=== PATIENT | female | born 1945 | race Caucasian/White ===

== ENCOUNTER 2020-11-06 08:20 | Outpatient (CLI) | payer MEDICARE, OTHER, SELFPAY ==
--- NOTE | ~2020-11-06 | US_ITS ---
EXAMINATION: US abdomen complete EXAM DATE: 11/06/2020 08:57 INDICATION: R10.9 - Unspecified abdominal pain. TECHNIQUE: Multiple grayscale and Doppler images of the complete abdomen were obtained (by a technolo gist who performed the scan) and subsequently reviewed. Comparison is made to prior examination from 10/26/18. FINDINGS: The abdominal aorta is normal in caliber. Visualized portion IVC is patent. The pancreatic head a nd body are normal in appearance. The pancreatic tail is not visualized. There is echogenic liver parenchyma, hepatic steatosis. There are no focal liver lesions identified. There is no evidence of intrahepatic biliary duct dilation. Portal venous flow was seen in the he patopedal, normal direction and has normal Doppler waveform. Common bile duct measures 4 mm, which is normal. The gallbladder wall is normal in thickness, with ex pected amount of distention. No sonographic evidence of pericholecystic fluid. There is cholelithia sis. Technologist performing exam reports patient did not demonstrate sonographic Soares's sign. P loraine note that this sign is less reliable in patients who have received pain medication. Right kidney: There is normal contour and echogenicity. It measures 10.2 x 3.9 x 5.2 centimeters. There are no focal renal lesions identified. There is no hydronephrosis. Left kidney: There is normal contour and echogenicity. It measures 10.5 x 4.4 x 4.6 centimeters. T here are no focal renal lesions identified. There is no hydronephrosis. The spleen measures 8.9 centimeters and is morphologically normal. IMPRESSION: 1. Unremarkable complete abdominal ultrasound exam. Reviewed, dictated and finalized at location B. CONSULTANT
== END 2020-11-06 08:21 ==
PROVIDERS: PCP Internal Medicine; Visit Provider Internal Medicine
DX: R10.9 Unspecified abdominal pain (principal)
CPT/HCPCS: 76700

== ENCOUNTER → 2020-11-07 12:51 | Outpatient (CLI) | payer MEDICARE, OTHER, SELFPAY ==
--- NOTE | ~2020-11-07 | MM_ITS ---
EXAMINATION: MM screening jacob BI w [place] HISTORY: Screening mammogram TECHNIQUE: Craniocaudal and mediolateral oblique 3-D tomosynthesis images were obtained and synthetic 2-D images were generated. CAD analysis was submitted and interpreted. COMPARISON: 10/28/2019, 10/26/2018, 10/16/2017 and lateral digital screening mammogram examinations BREAST PARENCHYMAL COMPOSITION: There are scattered areas of fibroglandular density. FINDINGS: There are numerous chronic bilateral low-density circumscribed opacities consistent with ly mph nodes along both axillary tail regions. Occasional bilateral benign calcifications are again noted. There is no evidence of suspicious mass, calcification, or architectural distortion to suggest malign roopa in either breast. There has been no suspicious interval change. IMPRESSION: 1. No mammographic evidence of malignancy. 2. Recommend routine screening mammography in one year. BI-RADS Category 2: Benign finding(s). Reviewed, dictated and finalized at location A. PER
== END ==
PROVIDERS: PCP Internal Medicine; Visit Provider Internal Medicine
DX: Z12.31 Encounter for screening mammogram for malignant neoplasm of breast (principal)
CPT/HCPCS: 77063; 77067

== ENCOUNTER 2021-01-15 13:14 | Outpatient (CLI) | payer MEDICARE, OTHER, SELFPAY | END 2021-01-15 13:15 | disposition home or self-care (01) | LOC: ANHCOVIDVC 13:14 | PROVIDERS: PCP Internal Medicine | DX: Z23 Encounter for immunization (principal) | CPT/HCPCS: 0001A; 91300 ==

== ENCOUNTER → 2021-01-16 00:15 | Outpatient (CLI) | payer MEDICARE, OTHER, SELFPAY ==
[2021-01-16 19:08] LABS: SARS-CoV-2 RNA PCR Negative
== END ==
PROVIDERS: PCP Internal Medicine; Visit Provider Internal Medicine Gastroenterology
DX: Z01.812 Encounter for preprocedural laboratory examination (principal); Z20.822 Contact with and (suspected) exposure to COVID-19
CPT/HCPCS: C9803; U0003; U0005

== ENCOUNTER 2021-01-19 00:57 | Day surgery (SDC) | payer MEDICARE, OTHER, SELFPAY ==
[2021-01-04 10:45] VITALS: BMI 28.4
--- NOTE | 2021-01-18 13:29 | WPDANESEPPF ---
Anes - Initial Pre Proc Eval Procedure: Operation Date: 01/19/21 08:00 Proposed Procedures p Screening Colonoscopy - Price Orosco MD Date/Time: 01/18/21 13:29 Surgeon: Price Orosco MD Pre Op Diagnosis: Neoplasm Screening Patient Data Age: 75 Gender: F Height: 1.65 m Weight: 77.5 kg Allergies Allergy/AdvReac Type Severity Reaction Status Date / Time No Known Allergies Allergy Mild Verified 01/19/21 06:41 Home Medications Medication Instructions Recorded Confirmed Type aspirin 81 mg tablet,delayed 81 mg PO DAILY 01/18/20 01/19/21 History release lisinopril 20 mg tablet 20 mg PO DAILY 01/18/20 01/19/21 History magnesium 250 mg tablet 250 mg PO DAILY 01/18/20 01/19/21 History omeprazole 20 mg capsule,delayed 20 mg PO DAILY #90 cap 09/18/20 01/19/21 Rx release diltiazem HCl 240 mg See Rx Instructions .ROUTE 10/16/20 01/19/21 Rx capsule,extended release 24 hr .COMPLEX #90 cap atorvastatin 80 mg tablet 80 mg PO DAILY #90 tablet 10/30/20 01/19/21 Rx omega-3 acid ethyl esters 1 gram 2 cap PO BID #360 cap 11/30/20 01/19/21 Rx capsule sodium,potassium,mag sulfates 17.5 See Rx Instructions PO .COMPLEX 12/14/20 01/19/21 Rx gram-3.13 gram-1.6 gram oral soln #354 ml Patient hx anesthesia problems: none Family hx anesthesia problems: none PMFSH Past Medical History Medical History (Updated 01/18/21 @ 13:30 by Evin Thompson MD) GERD (gastroesophageal reflux disease) High cholesterol History of cervical dysplasia HPV (human papilloma virus) infection Hypertension Normal colonoscopy PVD (peripheral vascular disease) Surgical History Surgical History H/O LEEP History of appendectomy History of ovarian cystectomy History of vaginal hysterectomy Family History Family History Mother Hypertension Patient's mother is Pancreatic cancer Father Hypertension Patient's father is Acute myocardial infarction Other Breast cancer Social History Social History Smoking status: Never smoker Second hand tobacco smoke exposure: Yes Alcohol intake: current Drinks per week: 1 Substance use: never Substance use type: does not use Living arrangements: with family Spiritual care concerns: No Anes - Eval Final PreProcedure Day of Procedure 01/18/21 13:29 Patient weight: overweight Heart: regular rate and rhythm Lungs: clear to auscultation and normal air movement Airway: Mallampati scale class II Neurological: alert and oriented Last oral intake: >/= 8 hours ASA classification: III Emergent: no Anesthetic plan: proceed Anesthesia type and monitoring: general GIVS Informed Consent: The patient's anesthetic plan and its attendant risks and benefits were discussed with the patient/family/POA. Questions were solicited and answers provided to the satisfaction of the patient/family/POA.
[2021-01-19 06:42] VITALS: BP 150/70; PULSE 87; RESP 16; TEMP 36.3; O2SAT 99
[2021-01-19] MEDS: LACTATED RINGERS 1,000 ML 150 ML IV CONT (06:52)
--- NOTE | 2021-01-19 08:05 | PM.HPGS ---
History of Present Illness History of Present Illness Consent: Risks, benefits, and alternatives have been discussed and questions answered. Patient agrees to proceed with procedure. Chief complaint: Neoplasm Screening Narrative: Nichelle Hernandez is a 75 year old female here for screening colonoscopy, last one 15-20 years ago. Review of Systems Constitutional: Constitutional: Denies headache(s) and Denies weakness Eyes: Eyes: Denies blurry vision ENT: Reports Normal hearing present, Denies headache(s) and Denies neck pain Cardiovascular: Cardiovascular: Denies chest pain and Denies dyspnea Respiratory: Respiratory: Denies dyspnea Gastrointestinal: Gastrointestinal: Reports no additional gastrointestinal complaints Genitourinary: Genitourinary: Denies dysuria Musculoskeletal: Musculoskeletal: Denies neck pain Integumentary/Breasts: Skin/Breast: Denies dry skin Neurologic: Reports Normal hearing present, Denies headache(s) and Denies weakness Psychiatric: Psychiatric: Denies anxiety Endocrine: Endocrine: Denies change in body appearance Hematologic/Lymphatic: Hematologic/Lymphatic: Denies easy bleeding Allergic/Immunologic: Allergic/Immunologic: Denies urticaria PMFSH Past Medical History Medical History (Updated 01/18/21 @ 13:30 by Evin Thompson MD) GERD (gastroesophageal reflux disease) High cholesterol History of cervical dysplasia HPV (human papilloma virus) infection Hypertension Normal colonoscopy PVD (peripheral vascular disease) Surgical History Surgical History H/O LEEP History of appendectomy History of ovarian cystectomy History of vaginal hysterectomy Family History Family History Mother Hypertension Patient's mother is Pancreatic cancer Father Hypertension Patient's father is Acute myocardial infarction Other Breast cancer Social History Social History Smoking status: Never smoker Second hand tobacco smoke exposure: Yes Alcohol intake: current Drinks per week: 1 Substance use: never Substance use type: does not use Living arrangements: with family Spiritual care concerns: No Meds Home Medications and Allergies Home Medications Medication Instructions Recorded Confirmed Type aspirin 81 mg tablet,delayed 81 mg PO DAILY 01/18/20 01/19/21 History release lisinopril 20 mg tablet 20 mg PO DAILY 01/18/20 01/19/21 History magnesium 250 mg tablet 250 mg PO DAILY 01/18/20 01/19/21 History omeprazole 20 mg capsule,delayed 20 mg PO DAILY #90 cap 09/18/20 01/19/21 Rx release diltiazem HCl 240 mg See Rx Instructions .ROUTE 10/16/20 01/19/21 Rx capsule,extended release 24 hr .COMPLEX #90 cap atorvastatin 80 mg tablet 80 mg PO DAILY #90 tablet 10/30/20 01/19/21 Rx omega-3 acid ethyl esters 1 gram 2 cap PO BID #360 cap 11/30/20 01/19/21 Rx capsule sodium,potassium,mag sulfates 17.5 See Rx Instructions PO .COMPLEX 12/14/20 01/19/21 Rx gram-3.13 gram-1.6 gram oral soln #354 ml Allergies Allergy/AdvReac Type Severity Reaction Status Date / Time No Known Allergies Allergy Mild Verified 01/19/21 06:41 Vital Signs Vital Signs - 24 hr 01/19/21 06:42 Temperature 97.3 F L Pulse Rate 87 Respiratory Rate 16 Blood Pressure 150/70 H Pulse Oximetry 99 Exam Const: General: comfortable and no acute distress HENMT: General nose exam: Normal nares present Eyes: General: appearance normal, both eyes and all related structures Neck: Neck: no JVD Resp: Auscultation: clear to auscultation bilaterally Cardio: Rate: regular rate Rhythm: regular rhythm GI: Inspection: non-distended GI Palp: Yes Soft to palpation Skin: General skin exam: normal color Neuro: General: gait normal Speech: normal speech Extrem: General: normal to inspe
[2021-01-19 08:31] VITALS: BP 110/59; PULSE 66; RESP 20; O2SAT 98
[2021-01-19 08:41] VITALS: BP 115/67; PULSE 68; RESP 18; O2SAT 98
[2021-01-19 08:51] VITALS: BP 123/73; PULSE 72; RESP 22; O2SAT 99
== END 2021-01-19 09:02 | disposition home or self-care (01) ==
PROVIDERS: PCP Internal Medicine; Visit Provider Internal Medicine Gastroenterology
PROC: 0DJD8ZZ Inspection of Lower Intestinal Tract, Via Natural or Artificial Opening Endoscopic (ICD-10-PCS; CPT 45378; principal; 2021-01-19 08:00)
DX: Z12.11 Encounter for screening for malignant neoplasm of colon (principal); K57.30 Diverticulosis of large intestine without perforation or abscess without bleeding; K64.8 Other hemorrhoids; Z79.82 Long term (current) use of aspirin; K21.9 Gastro-esophageal reflux disease without esophagitis; E78.00 Pure hypercholesterolemia, unspecified; I10 Essential (primary) hypertension; I73.9 Peripheral vascular disease, unspecified
CPT/HCPCS: G0121; J7120

== ENCOUNTER 2021-02-05 13:12 | Outpatient (CLI) | payer MEDICARE, OTHER, SELFPAY | END 2021-02-05 13:13 | disposition home or self-care (01) | LOC: ANHCOVIDVC 13:12 | PROVIDERS: PCP Internal Medicine | DX: Z23 Encounter for immunization (principal) | CPT/HCPCS: 0002A; 91300 ==

== ENCOUNTER 2021-03-14 11:52 | Outpatient (CLI) | payer MEDICARE, OTHER, SELFPAY ==
--- NOTE | ~2021-03-14 | XR_ITS ---
XR knee LT 3V 03/14/2021 12:14 Indication: Left knee pain Procedure: 3 views left knee Comparison: 10/08/2019 Findings: No fracture, subluxation or dislocation. No significant joint effusion. There is a corticat ed ossific density medial to the femoral condyle, likely related to remote trauma. Impression: 1: No significant bone or joint abnormality. Reviewed, dictated and finalized at location B. Impression: 1: No significant bone or joint abnormality.
--- NOTE | ~2021-03-14 | XR_ITS ---
XR knee RT min 4V 03/14/2021 12:14 Indication: Right knee pain Procedure: 4 views right knee Comparison: No prior studies for comparison. Findings: There is mild osteoarthritis of the right knee. No fracture or traumatic malalignment. Smal l joint effusion. No foreign bodies. Impression: 1: Mild osteoarthritis of the right knee. 2: Small joint effusion. Reviewed, dictated and finalized at location B. Impression: 1: Mild osteoarthritis of the right knee. 2: Small joint effusion.
== END 2021-03-14 11:53 | disposition home or self-care (01) ==
PROVIDERS: PCP Internal Medicine; Visit Provider Orthopaedic Surgery
DX: M17.11 Unilateral primary osteoarthritis, right knee (principal); M25.461 Effusion, right knee
CPT/HCPCS: 73562; 73564

== ENCOUNTER → 2022-04-11 14:26 | Outpatient (CLI) | payer MEDICARE, OTHER, SELFPAY ==
--- NOTE | ~2022-04-11 | MM_ITS ---
EXAMINATION: MM screening jacob BI w [place] HISTORY: Screening mammogram TECHNIQUE: Craniocaudal and mediolateral oblique 3-D tomosynthesis images were obtained and synthetic 2-D images were generated. CAD analysis was submitted and interpreted. COMPARISON: 11/07/2020, 10/28/2019, 10/26/2018 bilateral screening mammogram examinations BREAST PARENCHYMAL COMPOSITION: The breasts are almost entirely fatty. FINDINGS: Axillary tail lymph nodes and benign calcifications are again noted bilaterally. There is n o evidence of suspicious mass, calcification, or architectural distortion to suggest malignancy in ei ther breast. There has been no suspicious interval change. IMPRESSION: 1. No mammographic evidence of malignancy. 2. Recommend routine screening mammography in one year. BI-RADS Category 2: Benign finding(s). Reviewed, dictated and finalized at location A.
== END ==
PROVIDERS: PCP Internal Medicine; Visit Provider Internal Medicine
DX: Z12.31 Encounter for screening mammogram for malignant neoplasm of breast (principal)
CPT/HCPCS: 77063; 77067

== ENCOUNTER 2022-05-03 10:44 | Outpatient (CLI) | payer MEDICARE, OTHER, SELFPAY ==
--- NOTE | ~2022-05-03 | XR_ITS ---
XR lumbar spine 2-3V DATE: 05/03/2022 11:55 INDICATION: Back pain TECHNIQUE: AP, lateral, coned lateral lumbosacral views COMPARISON: None FINDINGS: There is osteopenia. There is minimal levoscoliosis of the lumbar spine. Moderate degenerative disc disease with minimal retrolisthesis at L1-2. Mild degenerative disc disease with minimal retrolisthesis at L2-3. Degenerative change at the apophyseal joints of the mid and lower lumbar spine with associated minima l grade 1 anterolisthesis at L3-4. Moderate degenerative disc disease at L4-5. No fracture or bone destruction is evident. Included lower thoracic and lumbar pedicles are intact. The sacroiliac joints are normal. There is calcification of the abdominal aorta, without evidence of aneurysm. IMPRESSION: Osteopenia Minimal levoscoliosis Moderate degenerative disc disease Degenerative changes apophyseal joints with minimal grade 1 anterolisthesis at L3-4 Reviewed, dictated and finalized at location A.
--- NOTE | 2022-05-03 11:35 | ECG_ITS ---
Measurements Intervals [place] Rate: 61 P: 46 ME: 122 QRS: 9 QRSD: 94 T: 75 QT: 414 QTc: 417 Interpretive Statements SINUS RHYTHM LOW QRS VOLTAGE IN PRECORDIAL LEADS [QRS DEFLECTION < 1.0 mV IN CHEST LEADS] BORDERLINE ECG NO PREVIOUS ECG AVAILABLE FOR COMPARISON Electronically Signed On 05-03-2022 14:42:46 CDT by Jarred Forman M.D.
== END 2022-05-03 10:45 | disposition home or self-care (01) ==
PROVIDERS: PCP Internal Medicine; Visit Provider Internal Medicine
DX: I10 Essential (primary) hypertension (principal); M85.88 Other specified disorders of bone density and structure, other site; M51.36 Other intervertebral disc degeneration, lumbar region; R94.31 Abnormal electrocardiogram [ECG] [EKG]
CPT/HCPCS: 72100; 93005

== ENCOUNTER 2022-06-24 00:08 | Day surgery (SDC) | payer MEDICARE, OTHER, SELFPAY ==
[2022-06-04 15:50] VITALS: BMI 27.5
[2022-06-24 10:13] VITALS: BP 131/68; PULSE 79; RESP 18; TEMP 36.7; O2SAT 100
[2022-06-24] MEDS: LACTATED RINGERS 1,000 ML 150 ML IV CONT (10:15)
--- NOTE | 2022-06-24 10:43 | WPDANESEPPF ---
Anes - Initial Pre Proc Eval Procedure: Operation Date: 06/24/22 11:15 Proposed Procedures p Esophagogastroduodenoscopy - Price Orosco MD Date/Time: 06/24/22 10:43 Surgeon: Price Orosco MD Pre Op Diagnosis: GERD Patient Data Age: 77 Gender: F Height: 1.68 m Weight: 77.3 kg Last Vital Signs Temp 98.0 F 06/24/22 10:13 Pulse 79 06/24/22 10:13 Resp 18 06/24/22 10:13 BP 131/68 06/24/22 10:13 Pulse Ox 100 06/24/22 10:13 O2 Del Method Room Air 06/24/22 10:13 Allergies Allergy/AdvReac Type Severity Reaction Status Date / Time No Known Allergies Allergy Mild Verified 06/24/22 10:12 Home Medications Medication Instructions Recorded Confirmed Type aspirin 81 mg tablet,delayed 81 mg PO DAILY 01/18/20 06/04/22 History release (Adult Low Dose Aspirin) magnesium 250 mg tablet 500 mg PO DAILY 03/30/21 06/04/22 History cholecalciferol (vitamin D3) 50 50 mcg PO DAILY #1 cap 04/24/21 06/04/22 Rx mcg (2,000 unit) capsule omega-3 acid ethyl esters 1 gram 2 cap PO BID #360 caps 02/25/22 06/04/22 Rx capsule (Lovaza) lisinopril 20 mg tablet 20 mg PO DAILY #90 tabs 05/03/22 06/04/22 Rx tramadol 50 mg tablet 50 mg PO Q6H PRN pain #14 tabs 05/03/22 06/04/22 Rx atorvastatin 80 mg tablet 80 mg PO HS 06/04/22 06/04/22 History diltiazem HCl 240 mg 240 mg PO DAILY 06/04/22 06/04/22 History capsule,extended release 24 hr omeprazole 40 mg capsule,delayed 20 mg PO DAILY 06/04/22 06/04/22 History release Patient hx anesthesia problems: none Family hx anesthesia problems: none Results Review: All pre-operative results and documents have been reviewed as part of the pre-operative evaluation. [facility] Past Medical History Medical History Abdominal discomfort Arthritis Arthritis of right knee Dyslipidemia Encounter for screening colonoscopy Essential hypertension GERD (gastroesophageal reflux disease) GERD (gastroesophageal reflux disease) High cholesterol History of cervical dysplasia HPV (human papilloma virus) infection Hypertension IFG (impaired fasting glucose) Mixed hyperlipidemia Normal colonoscopy Postmenopausal HRT (hormone replacement therapy) PVD (peripheral vascular disease) UTI (urinary tract infection) Vitamin D deficiency, unspecified Surgical History Surgical History H/O LEEP History of appendectomy (~1952) History of ovarian cystectomy History of vaginal hysterectomy (~1982) Family History Family History Mother Hypertension Patient's mother is Pancreatic cancer Father Hypertension Patient's father is Acute myocardial infarction Other Breast cancer Social History Social History Smoking status: Former smoker Second hand tobacco smoke exposure: No Alcohol intake: current Drinks per week: 1 Alcohol use details: 4 beers a month/occasional glass of wine Substance use: never Substance use type: does not use Living arrangements: with family Spiritual care concerns: No Anes - Eval Final PreProcedure Day of Procedure 06/24/22 10:43 Patient weight: normal Heart: regular rate and rhythm Lungs: clear to auscultation Airway: Mallampati scale class II Neurological: alert and oriented Last oral intake: >/= 8 hours ASA classification: III Emergent: no Anesthetic plan: proceed Anesthesia type and monitoring: general GIVS and standard monitoring Results Review: All pre-operative results and documents have been reviewed as part of the pre-operative evaluation. Informed Consent: The patient's anesthetic plan and its attendant risks and benefits were discussed with the patient/family/POA. Questions were solicited and answers provided to the satisfaction o
--- NOTE | 2022-06-24 10:48 | PM.HPGS ---
History of Present Illness History of Present Illness Consent: Risks, benefits, and alternatives have been discussed and questions answered. Patient agrees to proceed with procedure. Chief complaint: GERD Narrative: Nichelle Hernandez is a 77 year old female with cough and dyspepsia, months ago had chest pressure after over eating but improved after changing her diet, she has been taking omeprazole for long time which discontinued briefly worried about potential side effects. Never had egd Review of Systems Constitutional: Constitutional: Denies headache(s) and Denies weakness Eyes: Eyes: Denies blurry vision ENT: Reports Normal hearing present, Denies headache(s) and Denies neck pain Cardiovascular: Cardiovascular: Denies chest pain and Denies dyspnea Respiratory: Respiratory: Denies dyspnea Gastrointestinal: Gastrointestinal: Reports no additional gastrointestinal complaints Genitourinary: Genitourinary: Denies dysuria Musculoskeletal: Musculoskeletal: Denies neck pain Integumentary/Breasts: Skin/Breast: Denies dry skin Neurologic: Reports Normal hearing present, Denies headache(s) and Denies weakness Psychiatric: Psychiatric: Denies anxiety Endocrine: Endocrine: Denies change in body appearance Hematologic/Lymphatic: Hematologic/Lymphatic: Denies easy bleeding Allergic/Immunologic: Allergic/Immunologic: Denies urticaria PMFSH Past Medical History Medical History Abdominal discomfort Arthritis Arthritis of right knee Dyslipidemia Encounter for screening colonoscopy Essential hypertension GERD (gastroesophageal reflux disease) GERD (gastroesophageal reflux disease) High cholesterol History of cervical dysplasia HPV (human papilloma virus) infection Hypertension IFG (impaired fasting glucose) Mixed hyperlipidemia Normal colonoscopy Postmenopausal HRT (hormone replacement therapy) PVD (peripheral vascular disease) UTI (urinary tract infection) Vitamin D deficiency, unspecified Surgical History Surgical History H/O LEEP History of appendectomy (~1952) History of ovarian cystectomy History of vaginal hysterectomy (~1982) Family History Family History Mother Hypertension Patient's mother is Pancreatic cancer Father Hypertension Patient's father is Acute myocardial infarction Other Breast cancer Social History Social History Smoking status: Former smoker Second hand tobacco smoke exposure: No Alcohol intake: current Drinks per week: 1 Alcohol use details: 4 beers a month/occasional glass of wine Substance use: never Substance use type: does not use Living arrangements: with family Spiritual care concerns: No Meds Home Medications and Allergies Home Medications Medication Instructions Recorded Confirmed Type aspirin 81 mg tablet,delayed 81 mg PO DAILY 01/18/20 06/04/22 History release (Adult Low Dose Aspirin) magnesium 250 mg tablet 500 mg PO DAILY 03/30/21 06/04/22 History cholecalciferol (vitamin D3) 50 50 mcg PO DAILY #1 cap 04/24/21 06/04/22 Rx mcg (2,000 unit) capsule omega-3 acid ethyl esters 1 gram 2 cap PO BID #360 caps 02/25/22 06/04/22 Rx capsule (Lovaza) lisinopril 20 mg tablet 20 mg PO DAILY #90 tabs 05/03/22 06/04/22 Rx tramadol 50 mg tablet 50 mg PO Q6H PRN pain #14 tabs 05/03/22 06/04/22 Rx atorvastatin 80 mg tablet 80 mg PO HS 06/04/22 06/04/22 History diltiazem HCl 240 mg 240 mg PO DAILY 06/04/22 06/04/22 History capsule,extended release 24 hr omeprazole 40 mg capsule,delayed 20 mg PO DAILY 06/04/22 06/04/22 History release Allergies Allergy/AdvReac Type Severity Reaction Status Date / Time No Known Allergies Allergy Mild Verified 06/24/22 10:12 Vital Signs V
[2022-06-24 11:00] VITALS: BP 120/64; PULSE 67; RESP 16; O2SAT 100
[2022-06-24 11:10] VITALS: BP 118/60; PULSE 65; RESP 18; O2SAT 100
[2022-06-24 11:20] VITALS: BP 118/72; PULSE 66; RESP 13; O2SAT 100
== END 2022-06-24 11:28 | disposition home or self-care (01) ==
PROVIDERS: PCP Internal Medicine; Visit Provider Internal Medicine Gastroenterology
PROC: 0DJ08ZZ Inspection of Upper Intestinal Tract, Via Natural or Artificial Opening Endoscopic (ICD-10-PCS; CPT 43235; principal; 2022-06-24 11:15)
DX: K21.00 Gastro-esophageal reflux disease with esophagitis, without bleeding (principal); K44.9 Diaphragmatic hernia without obstruction or gangrene; Z79.82 Long term (current) use of aspirin; I10 Essential (primary) hypertension; E78.5 Hyperlipidemia, unspecified; E55.9 Vitamin D deficiency, unspecified
CPT/HCPCS: 43239; 88305; J2001; J2704; J7120

== ENCOUNTER → 2022-10-29 10:19 | Outpatient (CLI) | payer MEDICARE, OTHER, SELFPAY ==
--- NOTE | ~2022-10-29 | DEXA_ITS ---
Bone Density Report Name: YARI ROLLINS Age: 77 Sex: Female Ethnicity: White Date of : 1945 Indication: postmenopausal; screening for osteoporosis; height loss; hysterectomy; Referring Provider: FIEDL SHERWOOD Study: Bone densitometry was performed. Exam Date: October 29, 2022 Accession number: [id number] Bone Density: Region BMD T-score Z-score Classification AP Spine (L1-L4) 1.025 -0.2 2.2 Normal Femoral Neck (Left) 0.798 -0.5 1.6 Normal Total Hip (Left) 0.868 -0.6 1.2 Normal Femoral Neck (Right) 0.744 -0.9 1.2 Normal Total Hip (Right) 0.830 -0.9 0.9 Normal Total Hip Mean 0.849 -0.8 1.1 Normal World Health Organization criteria for BMD impression classify patients as: Normal (T-score at or above -1.0), Osteopenia (T-score between -1.0 and -2.5), or Osteoporosis (T-score at or below -2.5). 10-year Fracture Risk: FRAX not reported because: All T-scores for Spine Total, Hip Total, Femoral Neck at or above -1.0 Previous Exams: Region Exam Age BMD T-score BMD Change BMD Change Date g/cm2 vs Baseline vs Previous AP Spine(L1-L4) 10/29/2022 77 1.025 -0.2 -0.062* -0.062* 10/28/2019 74 1.087 0.4 Total Hip(Left) 10/29/2022 77 0.868 -0.6 -0.053* -0.053* 10/28/2019 74 0.921 -0.2 Total Hip(Right) 10/29/2022 77 0.830 -0.9 -0.057* -0.057* 10/28/2019 74 0.887 -0.4 *Denotes significance at 95% confidence level, LSC for AP Spine = 0.022 g/cm2, LSC for Total Hip = 0.027 g/cm2 Clinical Information Provided by Patient: Has used the following medications: Vitamin D, MTV Has the following medical conditions: Hysterectomy, HX OF CERVICAL PRECANCEROUS CELLS AT AGE 37 Patient maximum height was 66.5 Menopause Age: 37 No regular weight bearing exercise Drinks caffeinated beverages Onset of menses at age 12 Number of children 0 Impression: The patient has normal bone mass. The BMD for the AP Spine(L1-L4) decreased, changing by -0.062 since the last DXA exam. The BMD for the Total Hip(Left) decreased, changing by -0.053 since the last DXA exam. The BMD for the Total Hip(Right) decreased, changing by -0.057 since the last DXA exam. Discussion: BONE DENSITY IS ABOVE THE MINIMUM DESIRABLE LEVEL AT ALL SKELETAL SITES TESTED. This patient?s bone mineral density is above the minimum desirable level (T-score -1.0 or better) at all sites measured. The patient should follow a healthful lifestyle (g
== END ==
PROVIDERS: PCP Nurse Practitioner; Visit Provider Obstetrics & Gynecology
DX: Z78.0 Asymptomatic menopausal state (principal)
CPT/HCPCS: 77080

== ENCOUNTER 2023-04-15 09:26 | Outpatient (CLI) | payer MEDICARE, SELFPAY ==
--- NOTE | ~2023-04-15 | XR_ITS ---
Supine and upright views of the abdomen Clinical history: Abdominal pain Findings: Bowel gas pattern is nonspecific. Moderate stool burden noted. No evidence for obstruction or free air. No abnormal mass lesion or calcification is seen. Osseous structures are intact. Impression: Moderate stool burden. Correlate for constipation. Reviewed, dictated and finalized at [facility]. Impression: Moderate stool burden. Correlate for constipation.
--- NOTE | ~2023-04-15 | US_ITS ---
Limited Abdominal Sonogram: Real-time sonographic imaging of the right upper quadrant was performed. Clinical History: Right upper quadrant pain Findings: The liver appears normal with no evidence of mass lesion or bile duct dilatation. Main por silvio vein demonstrates normal direction of flow. The gallbladder is well distended, and appears normal with no evidence of gallstone or wall thickening. The common bile duct measures 4 mm. The visualize d pancreas, aorta, and IVC are unremarkable. Impression: No significant abnormality seen. Reviewed, dictated and finalized at location M. Impression: No significant abnormality seen.
== END 2023-04-15 09:27 | disposition home or self-care (01) ==
LOC: ANHIMG 09:30
PROVIDERS: PCP Family Medicine; Visit Provider Family Medicine
DX: R10.11 Right upper quadrant pain (principal); K21.9 Gastro-esophageal reflux disease without esophagitis
CPT/HCPCS: 74019; 76705

== ENCOUNTER 2024-02-18 01:09 | Emergency (ER) | payer MEDICARE, SELFPAY ==
[2024-02-18 01:14] VITALS: BP 151/68; PULSE 73; RESP 20; TEMP 37; O2SAT 97
--- NOTE | 2024-02-18 01:23 | ECG_ITS ---
Measurements Intervals [place] Rate: 67 P: 44 SD: 127 QRS: 3 QRSD: 96 T: 49 QT: 397 QTc: 420 Interpretive Statements SINUS RHYTHM LOW QRS VOLTAGE IN PRECORDIAL LEADS [QRS DEFLECTION < 1.0 mV IN CHEST LEADS] BORDERLINE ECG COMPARED TO ECG 05/03/2022 11:42:13 NO SIGNIFICANT CHANGES Electronically Signed On 02-18-2024 14:30:25 CDT by Jose Antonio Tovar M.D.
[2024-02-18 01:35] VITALS: PULSE 71; O2SAT 100
--- NOTE | 2024-02-18 01:59 | ED.ARRPALP ---
HPI - Arrhythmia/Palpitations General Chief Complaint: Arrhythmia/Palpitations Stated Complaint: palpations Time Seen by Provider: 02/18/24 01:47 History of Present Illness HPI narrative: Patient is a 78-year-old female who presents to the emergency department this morning complaining of left neck spasms. patient states that approximately 1 hour prior to arrival to the emergency department, patient noticed that her back of her left neck muscles was spasming. Patient states that initially it did feel like a muscle spasm /contraction, however, the spasms/ contractions were very rhythmic concerning her that maybe it was not her muscles and something else. Patient points to the area which is directly left to the midline cervical spine in the left paraspinal muscle, patient denies any pain or pulsating sensation to the left of along the carotid artery/ jugular vein. Patient denies any history of arrhythmias, however, she admits that she has intermittent palpitations once a week. Patient was concerned that her symptoms could be from an irregular heart rate and wanted to make sure that she was not in AFib as she is aware that AFib leads strokes. She denies any focal weakness, numbness, any tingling, gait instability, dizziness, headaches, blurry visions and denies any neurological symptoms at this time. Patient is also denying any chest pain or shortness of breath, denies any fevers or chills, denies any nausea or vomiting. There are no other modifying, alleviating, or precipitating factors. Related Data Home Medications Medication Instructions Recorded Confirmed aspirin 81 mg tablet,delayed 81 mg PO DAILY 01/18/20 09/25/23 release (Adult Low Dose Aspirin) magnesium 250 mg tablet 500 mg PO DAILY 03/30/21 09/25/23 triamcinolone acetonide 0.1 % 1 applic topical BID 11/12/22 09/25/23 topical cream omeprazole 40 mg capsule,delayed 40 mg PO DAILY 11/27/23 release Allergies Allergy/AdvReac Type Severity Reaction Status Date / Time No Known Allergies Allergy Mild Verified 11/27/23 09:45 Review of Systems Review of Systems: All systems are reviewed and are negative unless stated otherwise in the HPI. [facility] Past Medical History Medical History Abdominal discomfort Arthritis Arthritis of right knee Dyslipidemia Encounter for screening colonoscopy Essential hypertension GERD (gastroesophageal reflux disease) GERD (gastroesophageal reflux disease) High cholesterol History of cervical dysplasia HPV (human papilloma virus) infection Hypertension IFG (impaired fasting glucose) Mixed hyperlipidemia Normal colonoscopy Postmenopausal HRT (hormone replacement therapy) PVD (peripheral vascular disease) UTI (urinary tract infection) Vitamin D deficiency, unspecified Surgical History Surgical History H/O LEEP History of appendectomy (~1952) History of ovarian cystectomy History of vaginal hysterectomy (~1982) Family History Family History Mother Hypertension Patient's mother is Pancreatic cancer Father Hypertension Patient's father is Acute myocardial infarction Other Breast cancer Social History Social History Smoking status: Never smoker Second hand tobacco smoke exposure: Yes Alcohol intake: current Drinks per week: 1 Alcohol use details: 4 beers a month/occasional glass of wine Substance use: never Substance use type: does not use Lack of Transportation: No Lack of Food: Never True Current Housing: I Have Housing Concerned About Future Housing: No Difficulty Paying Gas/Electric Bills: No Difficulty Paying for Meds: No Currently Unemployed: No Education: Bachelor's Degree Difficulty w/ Childcare or Family Care: No Living
[2024-02-18 02:03] VITALS: PULSE 63; RESP 17; O2SAT 97
[2024-02-18 02:31] LABS: Basophils Absolute Auto 0.1 K/mm3 (0.0-0.1); Eosinophils Absolute Auto 0.2 K/mm3 (0-0.3); Eosinophils Percent Auto 2.3 % (0-4.4); Hematocrit 38.2 % (37.0-47.0); Hemoglobin 12.9 g/dL (12.0-15.0); Immature Granulocyte Absolute 0.01 K/mm3 (0.00-0.031); Immature Granulocyte Percent A 0.1 % (0-0.5); Lymphocytes Absolute Auto 3.23 K/mm3 (0.9-3.2); Lymphocytes Percent Auto 46.4 % (18.3-44.2); Mean Corpuscular HGB Conc 33.8 g/dl (32-36); Mean Corpuscular Hemoglobin 29.9 pg (26-34); Mean Corpuscular Volume 88.6 fl (80-100); Mean Platelet Volume 9.2 fl (7.4-10.4); Monocytes Absolute Auto 0.7 K/mm3 (0.1-0.6); Monocytes Percent Auto 9.9 % (2.6-8.5); Neutrophils Absolute Auto 2.8 K/mm3 (1.3-6.7); Neutrophils Percent Auto 40.3 % (45.5-73.1); Platelet Count Result 253 k/mm3 (150-375); Red Blood Count 4.31 M/mm3 (4.2-5.4)
[2024-02-18 02:42] VITALS: PULSE 65; RESP 15; O2SAT 98
[2024-02-18 02:45] VITALS: PULSE 64; RESP 12; O2SAT 100
[2024-02-18 02:45] LABS: Alanine Aminotransferase 31 U/L (6-35); Alkaline Phosphatase 62 U/L (38-126); Anion Gap 5 mmol/L (4-12); Aspartate Amino Transferase 30 U/L (14-36); Bilirubin,Total 0.3 mg/dL (0.2-1.3); Blood Urea Nitrogen 18 mg/dL (7-17); Calcium 9.5 mg/dL (8.4-10.2); Carbon Dioxide 26 mmol/L (22-30); Chloride 107 mmol/L (98-107); Estimated CRCL calculation 55 ml/min; Estimated Glomerular Filt Rate > 60; Glucose 113 mg/dL (65-110); Magnesium 2.2 mg/dL (1.6-2.3); Potassium 4.1 mmol/L (3.4-5.0); Sodium 138 mmol/L (137-145)
[2024-02-18 02:56] LABS: Troponin I < 0.012 ng/mL (0.000-0.034)
== END 2024-02-18 03:34 | disposition home or self-care (01) ==
PROVIDERS: Emergency Provider Emergency Medicine; PCP Family Medicine
DX: M62.830 Muscle spasm of back (principal); I10 Essential (primary) hypertension; K21.9 Gastro-esophageal reflux disease without esophagitis; E78.5 Hyperlipidemia, unspecified; E55.9 Vitamin D deficiency, unspecified
CPT/HCPCS: 36415; 80053; 83735; 84484; 85025; 93005; 99284

== ENCOUNTER 2024-04-02 07:48 | Outpatient (CLI) | payer MEDICARE, SELFPAY ==
--- NOTE | ~2024-04-02 | MM_ITS ---
EXAMINATION: MM diagnostic jacob BI w zenobia HISTORY: New onset right nipple inversion. Chronic intermittent left nipple inversion for years. TECHNIQUE: ML, MLO and CC 3-D tomosynthesis images of both breasts were performed and synthetic 2-D i mages were generated. CAD analysis was submitted and interpreted. COMPARISON: Serial mammographic examinations dating back to 10/26/2018 were reviewed BREAST PARENCHYMAL COMPOSITION: There are scattered areas of fibroglandular density. FINDINGS: No suspicious mass or architectural distortion, malignant calcification, skin thickening or retraction or significant new or developing density is detected. IMPRESSION: 1. No mammographic evidence of malignancy; no significant change since 10/26/2018 2. Routine annual mammographic screening is recommended BI-RADS Category 1: Negative Reviewed, dictated and finalized at location B. IMPRESSION: 1. No mammographic evidence of malignancy; no significant change since 10/26/20 18 2. Routine annual mammographic screening is recommended BI-RADS Category 1: Negative
== END 2024-04-02 07:49 ==
LOC: MICIMG 07:49
PROVIDERS: PCP Family Medicine; Visit Provider Nurse Practitioner Family
DX: N64.59 Other signs and symptoms in breast (principal)
CPT/HCPCS: 77062; 77066; G0279

== ENCOUNTER 2024-09-07 11:30 | Outpatient (CLI) | payer MEDICARE, SELFPAY ==
--- NOTE | ~2024-09-07 | CT_ITS ---
CT brain wo con Ordering provider: Reno Clement MD History: 79 years Female with . S09.90XA - Unspecified injury of head, initial encounter . Comparison: None. Technique: CT of the head without contrast. Radiation reduction technique utilized.The dose-length product was 605.33 mGy-cm FINDINGS: BRAIN PARENCHYMA AND CSF SPACES: Mild leukoaraiosis and diffuse cortical atrophy. Mild atheromatous d isease. No midline shift, mass effect or hemorrhage. The brain parenchyma and CSF spaces are otherwi se normal. Empty sella turcica. VISUALIZED PARANASAL SINUSES: Well aerated. MASTOIDS: Well aerated. BONES: The bones appear intact. SOFT TISSUES: Visualized nasopharynx is normal. Superficial soft tissues are normal. IMPRESSION: No acute intracranial findings. Reviewed, dictated and finalized at location A.
--- NOTE | ~2024-09-07 | XR_ITS ---
XR toe 1st LT min 2V Ordering provider: Reno Clement MD History: . INJURY 1ST TOE/METATARSAL, BRUISING, SWELLING . Comparison: None. FINDINGS: BONES: Lucency seen in the distal metaphysis of the distal phalanx of the big toe. Evaluation for tenderness in the area advised. Otherwise, No definite acute fracture or dislocation. JOINT SPACES: Narrowing of the metatarsophalangeal joint with cystic changes and marginal osteophytes .. SOFT TISSUES: Normal. IMPRESSION: No definite acute osseous abnormality. Lucency seen in the distal phalanx distally metaphysis. Evalua tion for tenderness tenderness in the area is advised. Osteoarthritic changes of the first metatarsophalangeal joint. Reviewed, dictated and finalized at location A. IMPRESSION: No definite acute osseous abnormality. Lucency seen in the distal phalanx dista lly metaphysis. Evaluation for tenderness tenderness in the area is advised. Osteoarthritic changes of the first metatarsophalangeal joint.
== END 2024-09-07 11:31 | disposition home or self-care (01) ==
LOC: ANHIMG 11:37
PROVIDERS: PCP Family Medicine; Visit Provider Family Medicine
DX: S09.90XA Unspecified injury of head, initial encounter (principal); M19.072 Primary osteoarthritis, left ankle and foot; X58.XXXA Exposure to other specified factors, initial encounter
CPT/HCPCS: 70450; 73660

== ENCOUNTER 2025-04-05 14:02 | Outpatient (CLI) | payer MEDICARE, SELFPAY ==
--- NOTE | ~2025-04-05 | MM_ITS ---
EXAMINATION: MM screening jacob BI w zenobia HISTORY: Screening TECHNIQUE: Craniocaudal and mediolateral oblique 3-D tomosynthesis images were obtained and synthetic 2-D images were generated. CAD analysis was submitted and interpreted. COMPARISON: Comparison to multiple prior studies sequentially, with oldest reviewed study dated 10/17. BREAST PARENCHYMAL COMPOSITION: Not dense: There are scattered areas of fibroglandular density. FINDINGS: There is no evidence of suspicious mass, calcification, or architectural distortion to sugg est malignancy in either breast. There has been no suspicious interval change. IMPRESSION: 1. No mammographic evidence of malignancy. 2. Recommend routine screening mammography in one year. BI-RADS Category 1: Negative Reviewed, dictated and finalized at location B.
== END 2025-04-05 14:03 | disposition home or self-care (01) ==
LOC: MICIMG 14:04
PROVIDERS: PCP Family Medicine; Visit Provider Obstetrics & Gynecology
DX: Z12.31 Encounter for screening mammogram for malignant neoplasm of breast (principal)
CPT/HCPCS: 77063; 77067

== ENCOUNTER 2025-07-05 14:21 | Outpatient (CLI) | payer MEDICARE, SELFPAY ==
--- NOTE | ~2025-07-05 | DEXA_ITS ---
Bone Density Report Name: YARI ROLLINS Age: 80 Sex: Female Ethnicity: White Date of : 1945 Indication: postmenopausal; screening for osteoporosis; height loss; hysterectomy; Referring Provider: RADHA OSMAN Study: Bone densitometry was performed. Exam Date: July 05, 2025 Accession number: [id number] Bone Density: Region BMD T-score Z-score Classification AP Spine(L1-L4) 0.985 -0.6 2.0 Normal Femoral Neck (Left) 0.748 -0.9 1.3 Normal Total Hip (Left) 0.795 -1.2 0.8 Osteopenia Femoral Neck (Right) 0.696 -1.4 0.8 Osteopenia Total Hip (Right) 0.762 -1.5 0.5 Osteopenia Total Hip Mean 0.779 -1.4 0.7 Osteopenia World Health Organization criteria for BMD impression classify patients as: Normal (T-score at or above -1.0), Osteopenia (T-score between -1.0 and -2.5), or Osteoporosis (T-score at or below -2.5). 10-year Fracture Risk(1): Major Osteoporotic Fracture 12% Hip Fracture 2.7% Reported Risk Factors: [place] (), Neck BMD=0.696, BMI=27.1 (1) FRAX(R) Version 3.08. Fracture probability calculated for an untreated patient. Fracture probability may be lower if the patient has received treatment. Previous Exams: -- Region Exam Age BMD T-score BMD Change BMD Change Date g/cm2 vs Baseline vs Previous -- AP Spine (L1-L4) 07/05/2025 80 0.985 -0.6 -9.4%* -3.9%* 10/29/2022 77 1.025 -0.2 -5.7%* -5.7%* 10/28/2019 74 1.087 0.4 Total Hip(Left) 07/05/2025 80 0.795 -1.2 -13.7%* -8.4%* 10/29/2022 77 0.868 -0.6 -5.8%* -5.8%* 10/28/2019 74 0.921 -0.2 Total Hip(Right) 07/05/2025 80 0.762 -1.5 -14.1%* -8.2%* 10/29/2022 77 0.830 -0.9 -6.5%* -6.5%* 10/28/2019 74 0.887 -0.4 -- *Denotes significance at 95% confidence level, LSC for AP Spine = 0.022 g/cm2, LSC for Total Hip = 0.027 g/cm2 Clinical Information Provided by Patient: Has used the following medications: Vitamin D, Calcium Has the following medical conditions: Hysterectomy Patient maximum height was 66 Menopause Age: 37 No regular weight bearing exercise Drinks caffeinated beverages Onset of menses at age 12 Number of children 0 Impression: The patient has low bone mass, based on the Right Total Hip T-score. The patient has an estimated ten-year risk of hip fracture of 2.7% and an estimated ten-year risk of major fracture of 12%, based on the WHO FRAX algorithm. The BMD for the AP Spine (L1-L4) decreased, changing by -3.9% since the last DXA exam. The BMD for the Total Hip(Left) decreased, changing by -8.4% since the last DXA exam. The BMD for the Total Hip(Right) decreased, changing by -8.2% since the last DXA exam. Discussion: BONE DENSITY IS LOW AT ONE OR MORE SKELETAL SITES. This patient's lowest T-score is low at one or more skeletal sites. It meets the World Health Organization's (WHO) criteria for ?low bone mass? (T-score between -1.0 and -2.5). The patient's 10-year risk of fracture as calculated by FRAX is less than the threshold where pharmacological therapy is recommended by the National Osteoporosis Foundation (NOF). However, all treatment decisions require clinical judgment and consideration of individual patient factors, including patient preferences, comorbidities, previous drug use, risk factors not captured in the FRAX model (e.g., frailty, falls, vitamin D deficiency, increased bone turnover, interval significant decline in bone density) and possible under or overestimation of fracture risk by FRAX. The patient should follow a healthful lifestyle (good nutrition with adequate calcium and vitamin D, and appropriate weight-bearing exercise). Follow-Up: Consider repeating this study in 2 years to reassess this patient's status, or sooner if there is some new clinical indication. Reported by: KODAK on 07/05/2025 2:45:00 PM. Reviewed, dictated and finalized at location A.
== END 2025-07-05 14:22 | disposition home or self-care (01) ==
LOC: MICIMG 14:23
PROVIDERS: PCP Family Medicine; Visit Provider Family Medicine
DX: Z78.0 Asymptomatic menopausal state (principal); M85.852 Other specified disorders of bone density and structure, left thigh; M85.851 Other specified disorders of bone density and structure, right thigh
CPT/HCPCS: 77080